=== PATIENT | male | born 1995 | race Two or more races ===

== ENCOUNTER 2020-11-20 21:12 | Observation (INO) ==
[2020-11-20] MEDS ORDERED: NS 0.9% 1000 ml BAG 1,000 ML IV ONE (21:28)
[2020-11-20] MEDS ORDERED: Ondansetron 4 mg VIAL 2 MG/ML 2 ml VIAL IV ONE (21:52)
[2020-11-20 22:02] LABS: ABS Eosinophils 0.1 10^3/ul (0-0.6); ABS Lymphocytes 1.4 10^3/ul (1.0-4.8); ABS Monocytes 0.9 10^3/ul (0-0.8); ABS Neutrophils 10.3 10^3/ul (1.5-7.7); Eosinophil % 0.8 %; Hematocrit 47 % (42-52); Hemoglobin 16.2 g/dL (14.0-18.0); Lymphocyte % 10.9 %; Mean Corpuscular HGB Conc 35 g/dL (31-36); Mean Corpuscular Hemoglobin 29 pg (27-31); Mean Corpuscular Volume 85 fL (80-94); Mean Platelet Volume 7.4 fL (7.4-10.4); Platelet Count 270 10^3/uL (150-450); Red Blood Count 5.52 10^6 /uL (4.18-5.48); Red Cell Distribution Width 13 % (10-15); White Blood Count 12.8 10^3/uL (3.5-10.8)
[2020-11-20 22:23] LABS: Albumin 4.4 g/dL (3.2-5.2); Albumin/Globulin Ratio 1.4 (1-3); C Reactive Protein 68.9 mg/L (<8.01); Calcium 9.5 mg/dL (8.6-10.3); EGFR African American 133.6 (>60); EGFR Non-African American 110.5 (>60); Globulin 3.1 g/dL (2-4); Magnesium 1.9 mg/dL (1.9-2.7); Potassium 3.6 mmol/L (3.5-5.0); Total Bilirubin 1.2 mg/dL (0.2-1.0); Total Protein 7.5 g/dL (6.4-8.9)
[2020-11-20] MEDS ORDERED: Iohexol 300 (CONTRAST) 10 ML SDV IV ONE (22:26)
[2020-11-20 23:35] LABS: Urine Appearance Clear; Urine Bilirubin Negative (Negative); Urine Blood 1+ (Negative); Urine Color Straw; Urine Glucose Negative (Negative); Urine Ketones Negative (Negative); Urine Nitrite Negative (Negative); Urine Protein Negative (Negative); Urine Specific Gravity 1.008 (1.002-1.030); Urine Urobilinogen Negative (Negative)
[2020-11-20 23:46] LABS: Urine Bacteria 1+ (Absent); Urine Red Blood Cell Absent (Absent); Urine Squamous Epithelial Cell Present (Absent); Urine White Blood Cell Absent (Absent)
[2020-11-21] MEDS ORDERED: Ondansetron 4 mg VIAL 2 MG/ML 2 ml VIAL IV PRN ×2 (01:52→09:15)
[2020-11-21] MEDS ORDERED: NS 0.9% 1000 ml BAG 1,000 ML IV SCH (02:00)
[2020-11-21] MEDS ORDERED: ZOSYN 3.375 GM x ONE DOSE over 30 miuntes IV (02:00)
[2020-11-21] MEDS: HYDROmorphone 1 MG/1 ML SYRINGE IV SLOW PU PRN ×4 (03:47→22:43)
[2020-11-21] MEDS ORDERED: LACTATED RINGERS 500 ML BAG IV ONE (04:10)
[2020-11-21] MEDS: Piperacillin/Tazobactam VIAL 3.375 GM in NS 0.9% 100 ml BAG 100 ML IVPB SCH ×3 (06:10→22:37)
[2020-11-21] MEDS ORDERED: HYDROcodone/ACETAMIN 5/325 mg TAB PO PRN (09:15)
[2020-11-21] MEDS ORDERED: fentaNYL 100 mcg/2 ml 50 MCG/ML VIAL IV PRN (09:15)
[2020-11-21] MEDS ORDERED: Naloxone 0.4 mg VIAL 0.4 mg/ml 1 ml VIAL IV PRN (09:15)
[2020-11-21] MEDS ORDERED: Buffered Lidocaine 1% SYRIN 1 ml INTRADERM ONE (09:16)
[2020-11-21] MEDS ORDERED: Sodium Citrate/Citric Acid LIQ 15 ML UDC PO ONE (09:16)
[2020-11-21] MEDS ORDERED: Succinylcholine 200 mg VIAL 20 mg/ml 10 ml VIAL (200 mg) ONE (09:25)
[2020-11-21] MEDS ORDERED: Midazolam 2 mg/2 ml VIAL 1 mg/ml 2 ml VIAL (2 mg) ONE (09:25)
[2020-11-21] MEDS ORDERED: Propofol 10 MG/ML 20 ML BTL ONE (09:25)
[2020-11-21] MEDS ORDERED: Bupivacaine 0.25% SDV 30 ML ONE ×2 (09:55→10:09)
[2020-11-21] MEDS ORDERED: Lactated Ringers 1000 ml BAG 1,000 ML IV SCH (10:00)
[2020-11-21] MEDS ORDERED: Sodium Citrate/Citric Acid LIQ 15 ML UDC ONE (10:02)
[2020-11-21] MEDS ORDERED: Rocuronium 50 mg VIAL 10 mg/ml 5 ml VIAL (50 mg) ONE ×2 (10:44→10:46)
[2020-11-21] MEDS ORDERED: Cisatracurium 2 MG/ML MDV 5 ML ONE ×2 (10:52→11:11)
[2020-11-21] MEDS ORDERED: Ondansetron 4 mg VIAL 2 MG/ML 2 ml VIAL ONE (11:25)
[2020-11-21] MEDS ORDERED: Dexamethasone IV 4 MG/ML VIAL 1 ml VIAL ONE (11:25)
[2020-11-21] MEDS ORDERED: Acetaminophen IV 1 GM/100ML 100 ML IV ONE (11:35)
[2020-11-21] MEDS: D5W 1/2 NS 1000 ml BAG 1,000 ML IV SCH (14:43)
[2020-11-22 04:56] LABS: ABS Lymphocytes 1.1 10^3/ul (1.0-4.8); ABS Neutrophils 12.8 10^3/ul (1.5-7.7); Eosinophil % 0.1 %; Hematocrit 39 % (42-52); Hemoglobin 13.3 g/dL (14.0-18.0); Lymphocyte % 7.4 %; Mean Corpuscular HGB Conc 34 g/dL (31-36); Mean Corpuscular Hemoglobin 29 pg (27-31); Mean Corpuscular Volume 86 fL (80-94); Mean Platelet Volume 7.2 fL (7.4-10.4); Platelet Count 224 10^3/uL (150-450); Red Cell Distribution Width 13 % (10-15); White Blood Count 14.9 10^3/uL (3.5-10.8)
[2020-11-22 05:12] LABS: Calcium 8.6 mg/dL (8.6-10.3); EGFR African American 145.6 (>60); EGFR Non-African American 120.3 (>60); Potassium 3.8 mmol/L (3.5-5.0)
[2020-11-22] MEDS: Piperacillin/Tazobactam VIAL 3.375 GM in NS 0.9% 100 ml BAG 100 ML IVPB SCH ×3 (05:26→21:41)
[2020-11-22] MEDS: D5W 1/2 NS 1000 ml BAG 1,000 ML IV SCH (05:26)
[2020-11-22] MEDS: HYDROmorphone 1 MG/1 ML SYRINGE IV SLOW PU PRN (05:26)
[2020-11-22] MEDS ORDERED: HYDROmorphone 0.5 MG/0.5 ML SYRINGE IV SLOW PU PRN (10:58)
[2020-11-23] MEDS: Piperacillin/Tazobactam VIAL 3.375 GM in NS 0.9% 100 ml BAG 100 ML IVPB SCH (05:28)
[2020-11-23 06:06] LABS: ABS Eosinophils 0.2 10^3/ul (0-0.6); ABS Lymphocytes 2.5 10^3/ul (1.0-4.8); ABS Monocytes 0.6 10^3/ul (0-0.8); Eosinophil % 2.3 %; Hematocrit 39 % (42-52); Hemoglobin 13.1 g/dL (14.0-18.0); Lymphocyte % 29.7 %; Mean Corpuscular HGB Conc 34 g/dL (31-36); Mean Corpuscular Hemoglobin 29 pg (27-31); Mean Corpuscular Volume 87 fL (80-94); Mean Platelet Volume 7.1 fL (7.4-10.4); Platelet Count 222 10^3/uL (150-450); Red Blood Count 4.47 10^6 /uL (4.18-5.48); Red Cell Distribution Width 13 % (10-15); White Blood Count 8.3 10^3/uL (3.5-10.8)
[2020-11-23 11:25] VITALS: BP 113/72
[2020-11-23] MEDS ORDERED: COVID-19 VACCINE, AD26(JANSSEN)/PF 0.5 ML IM ONE (15:00)
== END 2020-11-23 15:10 | disposition home or self-care (01) ==
LOC: ED 21:12 → SSU 21:12
PROVIDERS: ADMIT Surgery Surgical Critical Care; ATTEND Surgery